=== PATIENT | female | born 1965 | race Caucasian/White ===

== ENCOUNTER 2024-08-03 08:17 | Day surgery (SDC) | payer BC ==
[2024-08-03] MEDS: diazePAM 5 MG TAB PO STA (08:51)
[2024-08-03 09:20] VITALS: TEMP 97.9
--- NOTE | 2024-08-03 12:41 | FL ---
EXAMINATION TYPE: FL myelogram 2 or more regions DATE OF EXAM: 08/03/2024 10:26 AM COMPARISON: None CLINICAL INDICATION:Female, 59 years old with history of M48.04 SPINAL STENOSIS, THORACIC REGION; FINDINGS: Informed consent was obtained including discussion of the risks and benefits. Timeout was taken per p annetteocol. Real-time fluoroscopy was performed to localize the lumbar spine access site. The patient wa s prepped and draped. Under sterile technique with local anesthesia a 22-gauge spinal needle was intr oduced into the arachnoid space with return of clear CSF. A total of 12 cc of Isovue-300 M was inject ed with appropriate opacification of the thecal sac. Total fluoroscopy time was 1 m 23 seconds Total fluoroscopic images . Radiographs taken: 12 DAP: Not Reported by machine [id number] IMPRESSION: Successful lumbar puncture with injection for CT myelogram. CT pending. [facility], , 08/03/2024 12:38 PM
[2024-08-03] MEDS: PREGABALIN 50 MG CAP PO STA (13:15)
[2024-08-03] MEDS: lisinopriL 10 MG TAB PO STA (13:26)
--- NOTE | 2024-08-03 13:33 | CT ---
EXAMINATION TYPE: CT CervThorLumbar spine w con CT DLP: 1548 mGycm, Automated exposure control for dose reduction was used. DATE OF EXAM: 08/03/2024 10:41 AM COMPARISON: Fluoroscopic myelogram 08/03/2024. CLINICAL INDICATION:Female, 59 years old with history of M48.04 SPINAL STENOSIS, THORACIC REGION; [facility] , Spinal stenosis, thoracic region, c-t-l spine myelogram TECHNIQUE: Multiple axial images were obtained of the cervicothoracolumbar spine after fluoroscopic myelogram. Soft tissue and bone windows in coronal and sagittal planes were obtained and reviewed. Contrast used:12 mL of Isovue M300 with IV Contrast, none. Oral contrast used: none. FINDINGS: No spondylolisthesis of the visualized spine. Postsurgical changes with anterior cervical fusion hardware with disc spacers involving C4-C7. Hardwa re appears intact. The left C4 screw extends through the posterior cortex of the C4 vertebral body ap proximately 1 mm. Both C5 screws extend past the posterior cortex of the C5 vertebral body approximat jake 2 to 3 mm. The 2 C6 screws extend 2 mm past the cortex of the C6 vertebral body. Additionally the right C7 screw extends 1 mm past the posterior cortex of the C7 vertebral body. There is mild effacement of the anterior thecal sac as a result of the C5 screws. No other significan t central canal stenosis. No significant cervical neural foraminal stenosis. No disc herniations iden tified. No significant central canal or neuroforaminal stenosis of the thoracic spine. Minimal small caliber of the thoracic spinal canal. No disc herniation is identified. Postsurgical changes from posterior lumbar fixation with bilateral pedicle screws involving L3 and L4 with laminectomy changes. Hardware appears intact with appropriate alignment. Vertebral augmentation of first appearing fracture of the L4 vertebral body with approximately 7 mm of retropulsion of the posterior cortex of the L4 vertebral body. Approximately 30 % height loss centrally. No significant c entral canal stenosis secondary to laminectomy change Mild central compression deformity of the L1 vertebral body with endplate sclerosis. Approximate 5% h eight loss centrally. Approximately 2 mm retropulsion. Results in mild effacement of the anterior the anisha sac. Cauda equina terminates appropriately at the L1-L2 disc level. Broad-based disc bulge with ligamentum flavum buckling resulting in mild central canal stenosis at L2 -L3. No other levels of significant central canal stenosis of the lumbar spine. No disc herniations identi fied. Mild bilateral neural foraminal stenosis secondary facet arthropathy L4-L5 and L5-S1. Small coronary artery calcifications. Atherosclerotic calcification of the aorta and its branches. Mo derate calcification at the origin of the left renal artery. Retroaortic left renal vein. IMPRESSION: 1. Age indeterminant superior endplate compression deformity of the L1 vertebral body with approxima tely 5% height loss and 2 mm of retropulsion. Correlate with point tenderness. 2. Postsurgical changes from fixation of L4 burst fracture with vertebral augmentation. Hardware queta ears intact with appropriate alignment. 3. Postsurgical changes from anterior cervical fusion C3-C7. Multilevel screw extension through the posterior cortex of the vertebral bodies with mild effacement of the anterior thecal sac as described above. 4. No significant thoracic spinal canal stenosis or disc herniation. 5. Mild degenerative disc disease with mild central canal stenosis at L2-L3. [facility], , 08/03/2024 1:31 PM
[2024-08-03 15:35] VITALS: BP 164/71; PULSE 100; RESP 16
== END 2024-08-03 14:02 | disposition home or self-care (01) ==
LOC: RADPROMAIN 08:17
PROVIDERS: ATTEND Neurological Surgery
DX: M48.04 Spinal stenosis, thoracic region (principal); M47.816 Spondylosis without myelopathy or radiculopathy, lumbar region; M47.817 Spondylosis without myelopathy or radiculopathy, lumbosacral region; M48.061 Spinal stenosis, lumbar region without neurogenic claudication; M48.56XA Collapsed vertebra, not elsewhere classified, lumbar region, initial encounter for fracture; Z98.1 Arthrodesis status
CPT/HCPCS: 62305; 72129; 72126; 72132; Q9967

== ENCOUNTER → 2024-09-08 | Outpatient (CLI) | payer BC ==
--- NOTE | 2024-09-08 22:45 | MR ---
EXAMINATION TYPE: MR shoulder RT wo con DATE OF EXAM: 09/08/2024 5:29 PM COMPARISON: Same day right shoulder x-ray CLINICAL INDICATION: Female, 59 years old with history of M25.511 PAIN IN R SHOULDER, Right shoulder pain x1 year IV Contrast: cc (None if empty) TECHNIQUE: Multiplanar, multisequence imaging of the right shoulder is performed without contrast. FINDINGS: Rotator Cuff: Some areas of increased signal in the supraspinatus and infraspinatus tendons which rem ain intact. Some increased signal in the subscapularis tendon. Rotator cuff muscle bulk is preserved. Acromioclavicular Joint: Moderate narrowing with moderate to severe capsular hypertrophy and mild spu rring. Distal acromion morphology unremarkable. Glenohumeral Joint: Small to moderate size joint effusion. No significant spurring. Labrum: The labrum appears grossly intact given limitation of non-arthrogram study. Biceps Tendon: The long head of biceps is in normal location within bicipital groove. Bone marrow signal: Tiny subchondral cystic change involving the lateral aspect of the humeral head. Other: No additional significant abnormality is appreciated. IMPRESSION: 1. Tendinosis of the rotator cuff tendons. No full-thickness retracted tear. 2. Fairly moderate AC joint arthropathy. Small to moderate size glenohumeral joint effusion. [facility], , 09/08/2024 10:43 PM
--- NOTE | 2024-09-09 08:41 | XR ---
EXAMINATION TYPE: XR shoulder complete RT DATE OF EXAM: 09/08/2024 CLINICAL HISTORY: pain TECHNIQUE: Three views of the right shoulder are obtained. COMPARISON: None FINDINGS: There is no acute fracture/dislocation evident. The acromioclavicular and glenohumeral bartolome int spaces appear within normal limits. The visualized ribs are intact and unremarkable. IMPRESSION: 1. There is no acute fracture or dislocation. ICD 10 NO FRACTURE, INITIAL EVALUATION [facility], , 09/09/2024 8:39 AM
== END | disposition home or self-care (01) ==
LOC: RADMRIMAIN 16:32
PROVIDERS: ATTEND Neurological Surgery
DX: M19.011 Primary osteoarthritis, right shoulder (principal); M67.813 Other specified disorders of tendon, right shoulder